=== PATIENT | female | born 1980 | race Caucasian/White ===

== ENCOUNTER 2025-05-09 11:41 | Outpatient (REF) | payer MEDICAID, SELFPAY ==
--- OUTSIDE RECORDS SUMMARY | 2025-05-09 11:30 | XMS_ITS | Encounter Summary ---
Author Organization [employer] Address [address] [place] [address] Care Team Providers Care Professional Development Director Name Role Phone Unavailable Primary Care Provider Unavailabl e Reason for Visit * Reason Comments Blood Pressure Check Encounter Details Date Type Department Care Team (Latest Contact Info) Description 05/09/2025 11:30 AM EST Clinical Support [facility] [address] [place] [address] Kenzie Blackburn RN [address] [place] [address] Hypertension, unspecified type Social History Tobacco Use Types Packs/Day Years Used Date Smoking Tobacco: Never Smokeless Tobacco: Never Tobacco Cessation:Counseling Given: Not Answered Alcohol Answer Date Recorded Q1: How often do you have a drink containing alc ohol? 1 04/25/2025 Average Number of Drinks Not on file 025 How often do you have six or more drinks on one occasion? 0 04/25/2025 Comments No Sex and Gender Information Value Date Recorded Sex Assigned at Female 04/25/2025 10:29 AM EST Legal Sex Female 10:11 AM EST Gender Identity Female 04/25/2025 10:29 AM EST Sexual Orientation Straight 04/25/2025 10 :29 AM EST documented as of this encounter Last Filed Vital Signs Vital Sign Reading Time Taken Comments Blood Pressure 144/92 05/09/2025 11:45 AM EST Pulse 99 05/09/2025 11:44 AM EST Temperature - - Respiratory Rate 16 05/09/2025 11:44 AM EST Oxygen Saturation 99% 05/09/2025 11:44 AM EST Room air Inhaled Oxygen Concentration - - Weight 96.7 kg (213 lb 3.2 oz) 05/09/2025 11:44 AM EST Height - - Body Mass Index 36.6 04/25/2025 11:02 AM EST documented in this encounter Progress Notes * Kenzie Blackburn RN - 05/09/2025 11:30 AM EST S: Pt here for nurse visit for BP Check. Pt reports that she does not have a car and she walks 3 times a week for 30 minutes at at time. Reports that she normally eats rice, meat, salad, fruit and vegetables. Pt denies smoking, denies drinking alcohol. Pt reports that she thinks that her home Bloodpressure readings have been good as she is not having any symptoms and feels well. Reports that shedoes not have a blood pressure monitor. Reports she is tolerating amlodipine well and has not experienced any medication reaction. Pt denies headache, chest pain, sob, dizziness and visual changes today. Pt declines influenza vaccine offered today. O: Pt currently rx amlodipine 2.5 mg po daily. Pt states is taking this medication daily and she took it this morning. A: BP today elevated at 146/90 left arm, sitting; 144/92 right arm, sitting P: Pt provided with home BP log. Parameters and ED precautions reviewed. Pt advised to take medications as rx. Pt encouraged to adhere to low sodium diet. Pt encouraged to increase amount and frequency of exercise. Recommended to complete outstanding lab orders. Advised note will be sent to provider for review and pt will be advised of any changes. * Larry Keen MD - 05/09/2025 11:30 AM EST No med changes. I will send a BP monitor for her. Please let her know documented in this encounter Miscellaneous Notes * Addendum Note - Larry Keen MD - 05/09/2025 11:30 AM ESTAddended by: LARRY KEEN on: 05/09/2025 01:40 PM Modules accepted: Orders documented in this encounter Plan of Treatment Upcoming Encounters Date Type Department Care Team (Late st Contact Info) Description 05/23/2025 11:00 AM EST Clinical Support [address] [address] 05/30/2025 2:00 PM EST Office Visit [address] [address] Padmaja Carney NP [address] [place] [address] documented as of this encounter Visit Diagnoses Diagnosis Hypertension, unspecified type documented in this encounter
[2025-05-09 13:08] LABS: MANUAL DIFF FLAG NO
[2025-05-09 13:18] LABS: Hematocrit 39.6 % (37.0-47.0); Hemoglobin 13.0 g/dl (12.0-16.0); Imm Gran Abs Auto 0.02 X10*3/uL (0.00-0.03); Imm Gran Pct Auto 0.3 % (0.0-0.4); Lymphocytes Absolute Auto 1.7 X10*3/uL (1.2-4.9); Mean Corpuscular HGB Conc 32.8 g/dl (31.0-35.0); Mean Corpuscular Hemoglobin 29.0 pg (27.0-33.0); Mean Corpuscular Volume 88.4 fL (80.0-98.0); NRBC Abs Auto 0.000 X10*3/uL (0.0-0.012); NRBC Pct Auto 0.0 /100WBC (0.0-0.2); Platelet Count 389 X10*3/uL (160-400); Red Blood Count 4.48 X10*6/uL (4.20-5.50); White Blood Count 7.6 X10*3/uL (4.8-10.8)
[2025-05-09 13:44] LABS: Anion Gap 11 (12-20); Blood Urea Nitrogen 9 mg/dL (9-16); Calcium 9.3 mg/dL (8.4-10.2); Carbon Dioxide 25 mmol/L (22-29); Chloride 106 mmol/L (96-108); Estimated Glomerular Filt Rate > 60; Potassium 3.7 mmol/L (3.3-5.1); Sodium 138 mmol/L (135-145)
--- OUTSIDE RECORDS SUMMARY | 2025-05-09 14:55 | XMS_ITS | Clinical Summary ---
Author Organization [employer] Address [address] [place] [address] Care Team Providers Care Dynamics Ax Solution Architect Name Role Phone Unavailable Primary Care Provider Unavailabl e Allergies Active Allergy Reactions Criticality Noted Date Comments Penicillins Rash Low 04/25/2025 Shrimp Flavor Agent (Non-Screening) Angioedema Low 04/25/2025 Medications amLODIPine (Norvasc) 2.5 MG tablet Take 1 tablet (2.5 mg) by mouth Once per day. 30 tablet 11 05/09/2025 12:20 PM EST 04/25/20 26 Active naproxen (Naprosyn) 500 MG tablet Take 1 tablet (500 mg) by mouth with breakfast and with evening meal for 10 days. 20 tablet 05/09/2025 12:20 PM EST 5 05/19/20 25 Active Blood Pressure kit For home use once a day 1 kit Active Encounters Date Type Department Care Team Description 05/09/2025 11:30 AM EST Clinical Support [facility] MEDICINE [address] [place] [phone] Kenzie Blackburn RN Hypertension, unspecified type 05/09/2025 Telephone [facility] MED[facility]INE [address] [place] [phone] Larry Saucedo MD 05/09/2025 Refill [facility]ALK-IN [address] [address] Larry Saucedo MD 05/09/2025 Travel 05/03/2025 Travel 04/25/2025 11:00 AM EST Office Visit [facility] [address] [place] [phone] Name, MD Larry Trochanteric bursitis of right hip (Primary Dx); Lateral pain of right hip; Hypertension, unspecified type 04/25/2025 Travel from Last 3 Months Family History Medical History Relation Name Comments Hypertension Mother Relation Name Status Comments Mother Social History Tobacco Use Types Packs/Day Years [...] Orientation Straight 04/25/2025 10 :29 AM EST Last Filed Vital Signs Vital Sign Reading Time Taken Comments Blood Pressure 144/92 05/09/2025 11:45 AM EST Pulse 99 05/09/2025 11:44 AM EST Temperature 36.4 C (97.5 F) 04/25/2025 11:02 AM EST Respiratory Rate 16 05/09/2025 11:44 AM EST Oxygen Saturation 99% 05/09/2025 11:44 AM EST Room air Inhaled Oxygen Concentration - - Weight 96.7 kg (213 lb 3.2 oz) 05/09/2025 11:44 AM EST Height 162.6 cm (5' 4 ) 04/25/2025 11:02 AM EST Body Mass Index 36.6 04/25/2025 11:02 AM EST Plan of Treatment Upcoming Encounters Date Type Department Care Team (Late st Contact Info) Description 05/23/2025 11:00 AM EST Clinical Support [facility] MEDICINE [address] [place] [phone] 05/30/2025 2:00 PM EST Office Visit [facility] MED[facility] [address] [place] [phone] Padmaja Carney NP [address] [place] [phone] Health Maintenance Due Date Last Done Comments Depression Screening 1982 HIV Screening 1982 Lipid Panel 1982 SDOH Screening 1982 Family Planning (PISQ) 1997 HPV Vaccines (1 - 3-dose series) 1997 Hepatitis C Screening 2000 DTaP/Tdap/Td Vaccines (1 - Tdap) 2001 Hepatitis B Vaccines (1 of 3 - 19+ 3-dose series) 2001 Pap Smear 2003 Cervical Cancer Screening 2012 HPV/Cotest 2012 Mammogram 2022 COVID-19 Vaccine (1 - 2024-2 6 season) 2025 Influenza Vaccine (#1) 2025 Alcohol/Substance Use Screening 04/25/2026 Disability Screening 05/03/2026 05/03/2025 Tobacco Screening 05/09/2026 05/09/2025 Zoster Vaccines (1 of 2) 2032 RSV Patients and Pa tients Aged 60 years or older (1 - 1-dose 75+ series) 2057 HIB Vaccines Aged Out No longer eligi ble based on patient's age to complete this topic Hepatitis A Vaccines Aged Out No long er eligible based on patient's age to complete this topic IPV Vaccines Aged Out No longer eligi ble based on patient's age to complete this topic Meningococcal B Vaccine Aged Out No l onger eligible based on patient's age to complete this topic Meningococcal Vaccine Aged Out No nicolasa batsheva eligible based on patient's age to complete this topic Pneumococcal Vaccine: Pediat rics (0 to 5 Years) and At-Risk Patients (6 to 49) Years Aged Out No longer eligi ble based on patient's age to complete this topic RSV under 20 months Aged Out No longe r eligible based on patient's age to complete this topic Rotavirus Vaccines Aged Out No longer eligible based on patient's age to complete this topic Procedures Procedure Name Priority Date/Time Associated Diagnosis Comments CBC WITH AUTO DIFFERENTIAL Routine 05/09/2025 11:49 AM EST Hypertension, unspecified type BASIC METABOLIC PANEL Routine 05/09/2025 11:49 AM EST Hypertension, unspecified type from Last 3 Months Results * CBC auto differential (05/09/2025 11:49 AM EST) White Blood Count 7.6 4.8 - 10.8 X10*3/uL [facility] Red Blood Count 4.48 4.20 - 5.50 X10*6/uL [facility] Hemoglobin 13.0 12.0 - 16.0 g/dl [facility] Hematocrit 39.6 37.0 - 47.0 % [facility] Mean Corpuscular Volume 88.4 80.0 - 98.0 fL [facility] Mean Corpuscular Hemoglobin 29.0 27.0 - 33.0 pg [facility] Mean Corpuscular HGB Conc 32.8 31.0 - 35.0 g/dl [facility] Red Cell Distribution Width 14.7 11.0 - 16.0 % [facility] Platelet Count 389 160 - 400 X10*3/uL [facility] Mean Platelet Volume 11.0 9.4 - 12.3 fL [facility] Neutrophils Percent Auto 65.0 45 - 73 % [facility] Imm Gran Pct Auto 0.3 0.0 - 0.4 % [facility] Lymphocytes Percent Auto 22.1 20 - 40 % [facility] Monocytes Percent Auto 9.6 2 - 11 % [facility] Eosinophils Percent Auto 2.1 0 - 4 % [facility] Basophils Percent Auto 0.9 0 - 2 % [facility] NRBC Pct Auto 0.0 0.0 - 0.2 /100WBC [facility] Neutrophils Absolute Auto 4.9 2.0 - 8.3 x10*3/uL [facility] Imm Gran Abs Auto 0.02 0.00 - 0.03 X10*3/uL [facility] Lymphocytes Absolute Auto 1.7 1.2 - 4.9 X10*3/uL [facility] Monocytes Absolute Auto 0.7 0.1 - 1.2 X10*3/uL [facility] Eosinophils Absolute Auto 0.2 0.0 - 0.4 X10*3/uL [facility] Basophils Absolute Auto 0.1 0.0 - 0.2 X10*3/uL [facility] NRBC Abs Auto 0.000 0.0 - 0.012 X10*3/uL [facility] Blood Venous blood specimen / Unknown 05/09/2025 11:49 AM EST 05/09/2025 1:04 PM EST us Larry Saucedo MD LAB BLOOD ORDERABLES Final Resul t Performing Organization Address [facility] Co de Phone Number [facility] [address] [place] [phone] * (ABNORMAL) Basic Metabolic Panel (05/09/2025 11:49 AM EST) Sodium 138 135 - 145 mmol/L [facility] Potassium 3.7 3.3 - 5.1 mmol/L [facility] Chloride 106 96 - 108 mmol/L [facility] Carbon Dioxide 25 22 - 29 mmol/L [facility] Anion Gap 11(L) 12 - 20 [facility] Urea Nitrogen (BUN) 9 9 - 16 mg/dL [facility] Creatinine, Serum 0.60 0.5 - 1.4 mg/dL [facility] Estimated Glomerular Filt Rate >60 [facility] Comment:Chronic Kidney Disea se: Estimated GFR < 60 mL/min/1.07a5Bjiwan Kidney Disease: Estimated GFR < 15 mL/min/1.73m2 Glucose 86 60 - 115 mg/dL [facility] Calcium 9.3 8.4 - 10.2 mg/dL [facility] Blood Venous blood specimen / Unknown 05/09/2025 11:49 AM EST 05/09/2025 1:08 PM EST us Larry Saucedo MD LAB BLOOD ORDERABLES Final Resul t Performing Organization Address [facility] Co de Phone Number [facility] [address] [place] [address] [phone] from Last [address] [phone] [facility] C[facility]
--- OUTSIDE RECORDS SUMMARY | 2025-05-09 14:55 | XMS_ITS | Encounter Summary ---
Author Organization [employer] Address [address] [place] [address] Care Team Providers Care Grease Rack Worker Name Role Phone Unavailable Primary Care Provider Unavailabl e Encounter Details Date Type Department Care Team (Late st Contact Info) Description 05/09/2025 Telephone [facility] MEDIC[facility] [address] [place] [address] Name, MD Larry [address] [place] [address] Social History Tobacco Use Types Packs/Day Years Used Date Smoking Tobacco: Never Smokeless Tobacco: Never Alcohol Answer Date Recorded Q1: How often [...] AM EST documented as of this encounter Miscellaneous Notes * Telephone Encounter - Kenzie Blackburn RN - 05/09/2025 2:02 PM EST T/C to pt via [employer]. Administrative Executive #[id number]. Advised of message from Dr. Saucedo re: prescription for blood pressure monitor being sent to [facility] pharmacy. Pt agrees to poultry picking machine tender prescription, check and recordhome BP daily and f/u with team nurse for blood pressure check 05/23/25. documented in this encounter Plan of Treatment Upcoming Encounters Date Type Department Care Team (Late st Contact Info) Description 05/23/2025 11:00 AM EST Clinical Support [address] [address] 05/30/2025 2:00 PM EST Office Visit [address] [address] Padmaja Carney NP [address] [place] [phone] documented as of this encounter Visit Diagnoses Not on filedocumented in this encounter
--- OUTSIDE RECORDS SUMMARY | 2025-05-09 14:55 | XMS_ITS | Encounter Summary ---
Author Organization [employer] Address [address] [place] [address] Care Team Providers Care Sterilisation Technician Name Role Phone Unavailable Primary Care Provider Unavailabl e Reason for Visit * Reason Comments Med Refill Encounter Details Date Type Department Care Team (Late Contact Info) Description 05/09/2025 Refill [facility] [address] [place] [phone] Name, MD Larry [address] [place] [phone] Social History Tobacco Use Types Packs/Day Years [...] AM EST documented as of this encounter Plan of Treatment Upcoming Encounters Date Type Department Care Team (Late Contact Info) Description 05/23/2025 11:00 AM EST Clinical Support [facility] [address] [place] [phone] 05/30/2025 2:00 PM EST Office Visit [facility] [address] [place] [phone] Padmaja Carney NP [address] [place] [address] documented as of this encounter Visit Diagnoses Not on filedocumented in this encounter
--- OUTSIDE RECORDS SUMMARY | 2025-05-09 14:55 | XMS_ITS | Encounter Summary ---
Author Organization [employer] Address [address] [facility] [address] [place] [address] Care Team Providers Care Hydraulic And Plumbing Installer Name Role Phone Unavailable Primary Care Provider Unavailabl e Encounter Details Date Type Department Care Team (Latest Contact Info) Description 05/09/2025 Travel Social History Tobacco Use Types Packs/Day Years [...] Description 05/23/2025 11:00 AM EST Clinical Support [facility] MEDICINE [address] [place] [phone] 05/30/2025 2:00 PM EST Office Visit [facility] [address] [place] [phone] Padmaja Carney NP [address] [place] [address] documented as of this encounter Visit Diagnoses Not on filedocumented in this encounter
== END 2025-05-09 11:42 | disposition home or self-care (01) ==
LOC: HO.HHCL 11:41
PROVIDERS: Internal Medicine Geriatric Medicine; PCP Internal Medicine; Visit Provider Internal Medicine
DX: I10 Essential (primary) hypertension (principal)
CPT/HCPCS: 36415; 80048; 85025

== ENCOUNTER 2025-05-30 16:39 | Outpatient (REF) | payer MEDICAID, SELFPAY ==
--- OUTSIDE RECORDS SUMMARY | 2025-05-30 14:00 | XMS_ITS | Encounter Summary ---
Author Organization [employer] [facility] Address [address] [place] [address] 7 [place] [address] Care Team Providers Care Sewage Disposal Worker Name Role Phone Padmaja Carney NP Primary Care Provider [phone] Reason for Referral * Consultation (Routine) - Authorized Specialty Diagnoses / Procedures Referred By Obdulia t Referred To Contact Dental Software Development Coordinator / Dentistry Diagnoses Healthcare maintenance Padmaja Carney NP [address] [place] [address] Phone: tel: fax: Referral ID Status Reason Start Date Expiration Date Visits Requested Visits Authorized [id number] Authorized Consult and Treat 05/30/2025 05/30/2026 1 1 * Imaging (Routine) - Authorized Specialty Diagnoses / Procedures Referred By Obdulia t Referred To Contact Radiology Diagnoses Healthcare maintenance Procedures BI Mammogram Screening Tomosynthesis Bilateral Padmaja Carney NP [address] [place] [address] Phone: tel: fax: [address] [phone] Phone: tel: fax: Referral ID Status Reason Start Date Expiration Date V isits Requested Visits Authorized [id number] Authorized 05/30/2025 05/30/2026 1 1 Encounter Details Date Type Department Care Team (Late st Contact Info) Description 05/30/2025 2:00 PM EST Office Visit [facility] [address] [place] [address] Padmaja Carney NP [address] [place] [address] Healthcare maintenance (Primary Dx); Routine screening for STI (sexually transmitted infection); Lipid screening; Encounter for immunization; Primary hypertension; Anxiety Social History Tobacco Use Types Packs/Day Years Used Date Smoking Tobacco: Former Cigarettes Passive Smoke Exposure: Past Smokeless Tobacco: Former Tobacco Cessation:Counseling Given: Not Answered Alcohol Answer Date Recorded Q1: How often do you have a drink containing alc ohol? 1 04/25/2025 Average Number of Drinks Not on file 025 How often do you have six or more drinks on one occasion? 0 04/25/2025 Depression Answer Date Recorded Patient Health Questionnaire-9 Score 4 05/30/2025 Patient Health Questionnaire-9 Score 4 05/30/2025 Last PHQ-9: Questionnaire Data Not on file 1 07/31/2024 Housing Stability Answer Date Recorded What is your housing situation today? I do not have housing (Staying with others, in a hotel, in a correction, living outside on the street, on a beach, in a car, or in a park 05/30/[address] you li ve. Do you have problems with any of the following? I am not sure 05/30/2025 Food Insecurity Answer Date Recorded Within the past 12 months, y ou worried that your food would run out before you got money to buy more: Sometimes True 2024 Within the past 12 months,th e food you bought just didn't last and you didn't have enough money to get more: Sometimes True 05/30/2025 Transportation Answer Date Recorded In the past 12 months, has l ack of transportation kept you from medical appts, meetings, work or from getting things needed for daily living? I am not sure 05/30/2025 Utilities Answer Date Recorded In the past 12 months, has t he electric, gas, oil or water company threatened to shut off services in your home? No 05/30/2025 Depression Answer Date Recorded Patient Health Questionnaire-2 Score 2 05/30/2025 Internet Access Answer Date Recorded Internet Access Q1 Yes 05/30/2025 Internet Access Q2 Not on file 05/30/2025 Comments No Sex and Gender Information Value Date Recorded Sex Assigned at Female 04/25/2025 10:29 AM EST Legal Sex Female 10:11 AM EST Gender Identity Female 04/25/2025 10:29 AM EST Sexual Orientation Straight 04/25/2025 10 :29 AM EST documented as of this encounter Last Filed Vital Signs Vital Sign Reading Time Taken Comments Blood Pressure 146/82 05/30/2025 2:10 PM EST Pulse 74 05/30/2025 2:10 PM EST Temperature 36.7 C (98.1 F) 05/30/2025 2:10 PM EST Respiratory Rate 18 05/30/2025 2:10 PM EST Oxygen Saturation 98% 05/30/2025 2:10 PM EST Inhaled Oxygen Concentration - - Weight 95.9 kg (211 lb 6 oz) 05/30/2025 2:10 PM EST Height 161.1 cm (5' 3.44 ) 05/30/2025 2:10 PM ES T Body Mass Index 36.93 05/30/2025 2:10 PM EST documented in this encounter Functional Status * Over the past 2 weeks, how often have you been bothered by any of the following problems? Question Answer Date of Assessment Author Patient Health Questionnaire -2 Score 2 05/30/2025 3:01 PM EST Chelsey Hollingsworth MA * Little interest or pleasure in doing things Answer Date of Assessment Author More than half the days 05/30/2025 3:01 PM EST R Chelsey Vail MA * Feeling down, depressed, or hopeless Answer Date of Assessment Author Not at all 05/30/2025 3:01 PM EST Chelsey Gonzalez MA * Trouble falling or staying asleep, or sleeping too much Answer Date of Assessment Author Not at all 05/30/2025 3:01 PM EST Chelsey Gonzalez MA * Feeling tired or having little energy Answer Date of Assessment Author More than half the days 05/30/2025 3:01 PM EST R eyes Chelsey Gómez MA * Poor appetite or overeating Answer Date of Assessment Author Not at all 05/30/2025 3:01 PM Chelsey Melissa MA * Feeling bad about yourself - or that you are a failure or have let yourself or your family down Answer Date of Assessment Author Not at all 05/30/2025 3:01 PM Chelsey Melissa MA * Trouble concentrating on things, such as reading the newspaper or watching television Answer Date of Assessment Author Not at all 05/30/2025 3:01 PM Chelsey Melissa MA * Moving or speaking so slowly that other people could have noticed? Or the opposite - being so fidgety or restless that you have been moving around a lot more than usual. Answer Date of Assessment Author Not at all 05/30/2025 3:01 PM Chelsey Melissa MA * Thoughts that you would be better off or hurting yourself in some way Answer Date of Assessment Author Not at all 05/30/2025 3:01 PM Chelsey Melissa MA * Patient Health Questionnaire-9 Score Answer Date of Assessment Author 4 05/30/2025 3:01 PM Chelsey Melissa MA * Over the last 2 weeks, how often have you been bothered by any of the following problems? Question Answer Date of Assessment Author Feeling nervous, anxious, or on edge 1 05/30/2025 3:01 PM Chelsey Knight MA Not being able to stop or control worrying 0 05/30/2025 3:01 PM Chelsey Knight MA Worrying too much about different things 1 05/30/2025 3:01 PM Chelsey Knight MA Trouble relaxing 1 05/30/2025 3:01 PM Chelsey Orellana MA Being so restless that it is hard to sit still 0 05/30/2025 3:01 PM Chelsey Knight MA Becoming easily annoyed or irritable 1 05/30/2025 3:01 PM Chelsey Knight MA Feeling afraid as if somethi ng awful might happen 0 05/30/2025 3:01 PM Chelsey Knight MA JANA-7 Total Score 4 05/30/2025 3:01 PM Chelsey Knight MA * How difficult have these problems made it for you to do your work, take care of things at home, or get along with other people? Answer Date of Assessment Author Not difficult at all 05/30/2025 3:01 PM Chelsey Auguste MA documented as of this encounter Progress Notes * Padmaja Carney NP - 05/30/2025 2:00 PM EST Subjective: Kandis Wheatley is a 45 y.o. female who presents to the office for a physical exam. Interim history: Note from Dr. Saucedo 04/25/25: Patient symptoms [R sided hip pain] are likely secondary to right-sided trochanteric bursitis. I recommended activity modification, avoid sitting with her legs crossed, avoid laying down on the right side, course of naproxen and call if symptoms persist in a couple of w eeks. Started amlodipine 2.5mg Amlodipine increased to 5mg at RN visit on 05/23/25 Current concerns: Hypertension BP Log from home reveals BP consistently in the 140s systolically. Elevated in office today (146/82) - Reports feeling well, no side effects from current antihypertensive medication except for possible constipation, which is not bothersome. - Concerned about high blood pressure due to associated risks. - Actively making lifestyle changes, including increased walking and healthier diet with more fruits and vegetables. 2. Mood Concerns / Anxiety - Previously experienced low mood, feelings of worry and nervousness related to lack of employment,financial concerns, and housing instability. - Noted improvement in mood since starting new employment. - Reports feeling tired, attributes fatigue to working night shifts and possible perimenopausal symptoms. - Denies current depression. Hip Pain - History of hip pain, previously experienced significant discomfort and limited mobility. - Reports significant improvement; currently no hip pain. Problem List[1] Surgical History[2] sterilization 2017 Family History[3] Social History Living situation: sister & 2 children Employment/Education: works in retail Diet/exercise: walking regularly, trying to increase fruit & vegetables, decreasing salt Substance use: none Sexual activity: not consistently Contraception: 2017 sterilization (does not know which operation) Mental health: Patient Health Questionnaire-9 Score: 4 (05/30/2025 3:01 PM) Patient Health Questionnaire-2 Score: 2 (05/30/2025 3:01 PM) Thoughts that you would be better off or hurting yourself in some way: Not at all (05/30/2025 3:01 PM) JANA-7 Total Score: 4 (05/30/2025 3:01 PM) Patient's last menstrual period was 05/28/2025 (exact date). Allergies[4] Review of Systems Constitutional: Negative for chills, diaphoresis, fatigue and fever. HENT: Negative for congestion, ear pain, hearing loss and sore throat. Eyes: Negative for pain and visual disturbance. Respiratory: Negative for cough, chest tightness and shortness of breath. Cardiovascular: Negative for chest pain, palpitations and leg swelling. Gastrointestinal: Positive for constipation. Negative for abdominal pain, blood in stool, diarrhea,nausea and vomiting. Genitourinary: Negative for difficulty urinating and dysuria. Musculoskeletal: Negative for arthralgias, back pain, joint swelling and myalgias. Skin: Negative for rash. Neurological: Negative for dizziness, syncope, light-headedness and headaches. Psychiatric/Behavioral: Negative for dysphoric mood. The patient is not nervous/anxious. Vitals: 05/30/25 1410 BP: (!) 146/82 BP Location: Left arm Patient Position: Sitting BP Cuff Size: Large adult Pulse: 74 Resp: 18 Temp: 98.1 ??F (36.7 ??C) TempSrc: Oral SpO2: 98% Weight: 211 lb 6 oz (95.9 kg) Height: 5' 3.44 (1.611 m) Physical Exam Constitutional: General: She is not in acute distress. Appearance: She is not ill-appearing, toxic-appearing or diaphoretic. HENT: Right Ear: Tympanic membrane, ear canal and external ear normal. Left Ear: Tympanic membrane, ear canal and external ear normal. Nose: Nose normal. Mouth/Throat: Mouth: Mucous membranes are moist. Pharynx: Oropharynx is clear. Eyes: General: Right eye: No discharge. Left eye: No discharge. Conjunctiva/sclera: Conjunctivae normal. Pupils: Pupils are equal, round, and reactive to light. Cardiovascular: Rate and Rhythm: Normal rate and regular rhythm. Pulses: Normal pulses. Heart sounds: Normal heart sounds. No murmur heard. Pulmonary: Effort: Pulmonary effort is normal. No respiratory distress. Breath sounds: Normal breath sounds. No stridor. No wheezing, rhonchi or rales. Abdominal: General: Abdomen is flat. Bowel sounds are normal. There is no distension. Palpations: There is no mass. Tenderness: There is no abdominal tenderness. There is no right CVA tenderness or left CVA tenderness. Musculoskeletal: General: No swelling, deformity or signs of injury. Cervical back: No tenderness. Right lower leg: No edema. Left lower leg: No edema. Lymphadenopathy: Cervical: No cervical adenopathy. Skin: General: Skin is warm and dry. Neurological: General: No focal deficit present. Mental Status: She is alert. Psychiatric: Mood and Affect: Mood normal. Behavior: Behavior normal. Assessment & Plan Healthcare maintenance - Healthcare maintenance addressed including preventive care. - Ordered mammogram for breast cancer screening. Discussed colon cancer screening to begin at age 45. Placed referrals for vision and dental care. Will check baseline labs. Orders: Comprehensive Metabolic Panel; Future CBC auto differential; Future BI Mammogram Screening Tomosynthesis Bilateral; Future Referral to [facility] Dental Adult; Future Routine screening for STI (sexually transmitted infection) Orders: Chlamydia/N. Gonorrhoeae, PCR, Urine Hepatitis B Core Antibody, Total; Future Hepatitis B Surface Antibody, Qualitative; Future Hepatitis B surface antigen, EIA; Future Hepatitis C Antibody with Reflex to HCV, RNA, Quantitative, Real-Time PCR; Future HIV-1/2 Antigen and Antibodies, Fourth Generation, with Reflexes; Future Syphilis Screen; Future Lipid screening Orders: Lipid Panel, Standard; Future Encounter for immunization Orders: TDAP VACCINE 7 yrs + Primary hypertension - Primary hypertension not yet at goal on current regimen. - Will start hydrochlorothiazide 12.5mg. Continue with amlodipine 5mg. Recheck BMP in 2 weeks. -Recommended lifestyle modifications including increased physical activity and dietary improvements. Will notify if abnormal lab results require further intervention. - Risks and side effects: Discussed potential side effects of antihypertensive medications and advised to report any adverse effects. -F/U in 2 wks for RN BP check Orders: hydroCHLOROthiazide 12.5 MG tablet; Take 1 tablet (12.5 mg) by mouth Once per day. Basic Metabolic Panel; Future Anxiety - Mild depressive and anxiety symptoms, currently improving with return to work and improved mood. No pharmacologic intervention indicated at this time. - Offered referral to behavioral health for therapy, patient agreed. not available during visit,will call the pt to schedule an appointment Routine Screening and Health Maintenance Optometry: referral placed today Dentist: referral placed today ASCVD risk: 45 y.o. femalehypertension Lab Review: orders written for new lab studies as appropriate; see orders Vaccines: Tdap -administered today Covid -declined Flu -declined Routine Cancer Screening Breast CA: mammo sent today Cervical CA: completed in January at [facility] Current Medications[5] Immunization History Administered Date(s) Administered Tdap 05/30/2025 Follow up in about 2 weeks (around 06/13/2025) for RN visit for BP check . [facility] RECRUITING ADMINISTRATOR Attestation RECRUITING ADMINISTRATOR Resident Attestation: Patient was seen and evaluated by Padmaja ALSTON , in collaboration with Edouard Bagley MD who has reviewed my assessment and plan. I, Edouard Bagley MD , have reviewed the resident's note and agree with the assessment & plan of care as documented above. This note was drafted using Ambient (AI) technology. The patient/patient's guardian has been informed and has consented to the use of this technology: Yes Visit Conducted in: Hungarian Translation by: Provided by [employer] Phone Service ID # [id number] [1] Patient Active Problem List Diagnosis Primary hypertension [2] No past surgical history on file. [3] Family History Problem Relation Name Age of Onset Hypertension Mother [4] Allergies Allergen Reactions Penicillins Rash Shrimp Flavor Agent (Non-Screening) Angioedema [5] Current Outpatient Medications Medication Sig Dispense Refill amLODIPine (Norvasc) 5 MG tablet Take 1 tablet (5 mg) by mouth Once per day. 30 tablet 11 Blood Pressure kit For home use once a day 1 kit 0 hydroCHLOROthiazide 12.5 MG tablet Take 1 tablet (12.5 mg) by mouth Once per day. 30 tablet 11 No current facility-administered medications for this visit. documented in this encounter Miscellaneous Notes * Assessment & Plan Note - Padmaja Carney NP - 05/30/2025 2:00 PM ESTAssociated Problem(s): Primary hypertension - Primary hypertension not yet at goal on current regimen. - Will start hydrochlorothiazide 12.5mg. Continue with amlodipine 5mg. Recheck BMP in 2 weeks. -Recommended lifestyle modifications including increased physical activity and dietary improvements. Will notify if abnormal lab results require further intervention. - Risks and side effects: Discussed potential side effects of antihypertensive medications and advised to report any adverse effects. -F/U in 2 wks for RN BP check Orders: hydroCHLOROthiazide 12.5 MG tablet; Take 1 tablet (12.5 mg) by mouth Once per day. Basic Metabolic Panel; Future * Assessment & Plan Note - Padmaja Carney NP - 05/30/2025 2:00 PM ESTAssociated Problem(s): Anxiety - Mild depressive and anxiety symptoms, currently improving with return to work and improved mood. No pharmacologic intervention indicated at this time. - Offered referral to behavioral health for therapy, patient agreed. BH not available during visit,will call the pt to schedule an appointment documented in this encounter Plan of Treatment Upcoming Encounters Date Type Department Care Team (Late st Contact Info) Description 06/13/2025 11:00 AM EST Clinical Support [facility] [address] [place] [address] Scheduled Orders Name Type Priority Associated Diagnoses Orde r Schedule Chlamydia/N. Gonorrhoeae, PCR, Urine Lab Routine Routine screening for STI (sexually transmitted infection) Ordered: 05/30/2025 Hepatitis B Core Antibody, Total Lab Routine Routine screening for STI (sexually transmitted infection) Expected: 05/30/2025 (Approximate), Expires: 05/30/2026 Hepatitis B Surface Antibody, Qualitative Lab Routine Routine screening for STI (sexually transmitted infection) Expected: 05/30/2025 (Approximate), Expires: 05/30/2026 Hepatitis B surface antigen, EIA Lab Routine Routine screening for STI (sexually transmitted infection) Expected: 05/30/2025 (Approximate), Expires: 05/30/2026 Hepatitis C Antibody with Reflex to HCV, RNA, Quantitative, Real-Time PCR Lab Routine Routine screening for STI (sexually transmitted infection) Expected: 05/30/2025 (Approximate), Expires: 05/30/2026 HIV-1/2 Antigen and Antibodies, Fourth Generation, with Reflexes Lab Routine Routine screening for STI (sexually transmitted infection) Expected: 05/30/2025 (Approximate), Expires: 05/30/2026 Syphilis Screen Lab Routine Routine screening for STI (sexually transmitted infection) Expected: 05/30/2025 (Approximate), Expires: 05/30/2026 Comprehensive Metabolic Panel Lab Routine Healthcare maintenance Expected: 05/30/2025 (Approximate), Expires: 05/30/2026 CBC auto differential Lab Routine Healthcare maintenance Expected: 05/30/2025 (Approximate), Expires: 05/30/2026 Lipid Panel, Standard Lab Routine Lipid screening Expected: 05/30/2025 (Approximate), Expires: 05/30/2026 BI Mammogram Screening Tomosynthesis Bilateral Imaging Routine Healthcare maintenance Expected: 05/30/2025, Expires: 07/31/2026 Basic Metabolic Panel Lab Routine Primary hypertension Expected: 06/13/2025 (Approximate), Expires: 05/30/2026 Scheduled Referrals Name Type Priority Associated Diagnoses Orde r Schedule Referral to [facility] Dental Adult Outpatient Referral Routine Healthcare maintenance Expected: 05/30/2025 (Approximate), Expires: 05/30/2026 documented as of this encounter Visit Diagnoses Diagnosis Healthcare maintenance- Primary Routine screening for STI (sexually transmitted infection) Screening examination for venereal disease Lipid screening Screening for lipoid disorders Encounter for immunization Primary hypertension Unspecified essential hypertension Anxiety Anxiety state, unspecified documented in this encounter Additional Health Concerns Assessment Noted Time PHQ-9 Depression Total Score: 4 05/30/20 25 3:01 PM EST documented as of this encounter Care Teams Sewage Disposal Worker Relationship Specialty Start Date End Date Padmaja Carney NP [address] [place] [phone] PCP - General Nurse Practitioner 05/30/25 documented as of this encounter
--- OUTSIDE RECORDS SUMMARY | 2025-05-30 21:04 | XMS_ITS | Encounter Summary ---
Author Organization [employer] Address [address] [place] [address] Care Team Providers Care Stone Processing Machine Operator Name Role Phone Padmaja Carney NP Primary Care Provider [phone] Reason for Visit * Reason Comments Med Refill Encounter Details Date Type Department Care Team (Late Contact Info) Description 05/09/2025 Refill [facility] [address] [place] [phone] Name, MD Larry [address] [place] [phone] Social History Tobacco Use Types Packs/Day Years [...] Description 06/13/2025 11:00 AM EST Clinical Support [facility] [address] [place] [phone] documented as of this encounter Visit Diagnoses Not on filedocumented in this encounter Care Teams Stone Processing Machine Operator Relationship Specialty Start Date End Date Padmaja Carney NP [address] [place] [phone] PCP - General Nurse Practitioner 05/30/25 documented as of this encounter
--- OUTSIDE RECORDS SUMMARY | 2025-05-30 21:04 | XMS_ITS | Encounter Summary ---
Author Organization [employer] Address [address] [place] [address] Care Team Providers Care Laundry Housekeeping Aide Name Role Phone Unavailable Primary Care Provider Unavailabl e Reason for Visit * Reason Onset Date Comments Chart Prep 05/29/2025 Encounter Details Date Type Department Care Team ([facility] st Contact Info) Description 05/29/2025 Telephone [facility] [address] [place] [address] Padmaja Carney, ANA [address] [place] [address] Chart Prep Social History Tobacco Use Types Packs/Day Years [...] with others, in a hotel, in a fpc, living outside on the street, on a [...] encounter Miscellaneous Notes * Telephone Encounter - Eduar Rosa MA - 05/29/2025 5:08 PM EST Chart Prep Labs: done Images: not applicable Referrals: not applicable Vaccines due: Covid, Flu, Hep B, HPV, and DTAP Screenings: mammogram and pap smear Overdue care gaps: SDOH, PHQ-9, JANA-7, Oral health screening, and Tobacco documented in this encounter Plan of Treatment Upcoming Encounters Date Type Department Care Team (Late st Contact Info) Description 06/13/2025 11:00 AM EST Clinical Support [facility] [address] [place] [phone] documented as of this encounter Visit Diagnoses Not on filedocumented in this encounter
--- OUTSIDE RECORDS SUMMARY | 2025-05-30 21:04 | XMS_ITS | Clinical Summary ---
Author Organization [employer] Address [address] [facility] [address] [place] [address] Care Team Providers Care Application Operations Engineer Name Role Phone Padmaja Carney NP Primary Care Provider [phone] Allergies Active Allergy Reactions Criticality Noted Date Comments Penicillins Rash Low 04/25/2025 Shrimp Flavor Agent (Non-Screening) Angioedema Low 04/25/2025 Medications Blood Pressure kit For home use once a day 1 kit 5 Active amLODIPine (Norvasc) 5 MG tablet Take 1 tablet (5 mg) by mouth Once per day. 30 tablet 11 05/24/2025 11:08 AM EST 5 026 Active hydroCHLOROthiaz delmar 12.5 MG tabletIndication s:Primary hypertension Take 1 tablet (12.5 mg) by mouth Once per day. 30 tablet 11 05/30/2025 3:51 PM EST 5 026 Active amLODIPine (Norvasc) 2.5 MG tablet Take 1 tablet (2.5 mg) by mouth Once per day. 30 tablet 11 05/09/2025 12:20 PM EST 5 025 Discontinu ed(Dose adjustment ) naproxen (Naprosyn) 500 MG tablet Take 1 tablet (500 mg) by mouth with breakfast and with evening meal for 10 days. 20 tablet 05/09/2025 12:20 PM EST 5 025 Active Problems Problem Noted Date Diagnosed Date Primary hypertension 05/30/2025 Assessment & Plan (05/30/2025 3:28 PM EST): - Primary hypertension not yet at goal [...] per day. Basic Metabolic Panel; Future Anxiety 05/30/2025 Assessment & Plan (05/30/2025 3:28 PM EST): - Mild depressive and anxiety symptoms, currently improving with return to work and improved mood. No pharmacologic intervention indicated at this time. - Offered referral to behavioral health for therapy, patient agreed. not available during visit, will call the pt to schedule an appointment Encounters Date Type Department Care Team Description 05/30/2025 2:00 PM EST Office Visit [facility] [place] [address] Padmaja Carney NP Healthcare maintenance (Primary Dx); Routine screening for STI (sexually transmitted infection); Lipid screening; Encounter for immunization; Primary hypertension; Anxiety 05/30/2025 Travel 05/29/2025 Telephone [facility] [address] Padmaja Carney NP Chart Prep 05/24/2025 Telephone [facility] [place] [address] Yenny Trujillo RN 05/23/2025 11:00 AM EST Clinical Support [facility] [address] Yenny Trujillo RN Hypertension, unspecified type 05/23/2025 Travel 05/16/2025 Travel 05/09/2025 11:30 AM EST Clinical Support [facility] [address] Kenzie Blackburn RN Hypertension, unspecified type 05/09/2025 Telephone [facility] [address] [place] [address] NameLarry MD 05/09/2025 Refill [facility] [address] [place] [address] NameLarry MD 05/09/2025 Travel 05/03/2025 Travel 04/25/2025 11:00 AM EST Office Visit [facility] [address] [facility] [place] [address] Name, MD Larry Trochanteric bursitis of right hip (Primary Dx); Lateral pain of right hip; Hypertension, unspecified type 04/25/2025 Travel from Last 3 Months Immunizations Immunization Administration Dates Next Due Tdap 05/30/2025 Family History Medical History Relation Name Comments [...] with others, in a hotel, in a intermediate, living outside on the street, on a [...] Mass Index 36.93 05/30/2025 2:10 PM EST Plan of Treatment Upcoming Encounters Date Type Department Care Team ([facility] st Contact Info) Description 06/13/2025 11:00 AM EST Clinical Support [facility] MEDICINE [address] [place] [phone] Health Maintenance Due Date Last Done Comments HIV Screening 1982 Lipid Panel 1982 Family Planning (PISQ) 1997 HPV Vaccines (1 - 3-dose series) 1997 Hepatitis C Screening 2000 Hepatitis B Vaccines (1 of 3 - 19+ 3-dose series) 2001 Pap Smear 2003 Cervical Cancer Screening 2012 HPV/Cotest 2012 Mammogram 2022 COVID-19 Vaccine ( - 2024-2 6 season) 2025 Influenza Vaccine (#1) 2025 Alcohol/Substance Use Screening 05/30/2026 05/30/2025 Depression Screening 05/30/2026 05/30/2025, 05/30/2025 Disability Screening 05/30/2026 05/30/2025 SDOH Screening 05/30/2026 05/30/2025 Tobacco Screening 05/30/2026 05/30/2025 Zoster Vaccines (1 of 2) 2032 DTaP/Tdap/Td Vaccines (2 - T d or Tdap) 05/30/2035 05/30/2025 RSV Patients and Patients Aged 60 years or older (1 - [...] age to complete this topic Pneumococcal Vaccine: Pediatrics (0 to 5 Years) and At-Risk Patients (6 to 49) Years Aged Out No longer eligible b ased on patient's age to complete this topic [...] Blood Count 7.6 4.8 - 10.8 X10*3/uL [facility] Red Blood Count 4.48 4.20 - 5.50 X10*6/uL [facility] Hemoglobin 13.0 12.0 - 16.0 g/dl [facility] Hematocrit 39.6 37.0 - 47.0 % [facility] Mean Corpuscular Volume 88.4 80.0 - 98.0 fL [facility] Mean Corpuscular Hemoglobin 29.0 27.0 - 33.0 pg [facility] Mean Corpuscular HGB Conc 32.8 31.0 - 35.0 g/dl [facility] Red Cell Distribution Width 14.7 11.0 - 16.0 % [facility] Platelet Count 389 160 - 400 X10*3/uL [facility] Mean Platelet Volume 11.0 9.4 - 12.3 fL [facility] Neutrophils Percent Auto 65.0 45 - 73 % [facility] Imm Gran Pct Auto 0.3 0.0 - 0.4 % [facility] Lymphocytes Percent Auto 22.1 20 - 40 % [facility] Monocytes Percent Auto 9.6 2 - 11 % [facility] Eosinophils Percent Auto 2.1 0 - 4 % [facility] Basophils Percent Auto 0.9 0 - 2 % [facility] NRBC Pct Auto 0.0 0.0 - 0.2 /100WBC [facility] Neutrophils Absolute Auto 4.9 2.0 - 8.3 x10*3/uL [facility] Imm Gran Abs Auto 0.02 0.00 - 0.03 X10*3/uL [facility] Lymphocytes Absolute Auto 1.7 1.2 - 4.9 X10*3/uL [facility] Monocytes Absolute Auto 0.7 0.1 - 1.2 X10*3/uL [facility] Eosinophils Absolute Auto 0.2 0.0 - 0.4 X10*3/uL [facility] Basophils Absolute Auto 0.1 0.0 - 0.2 X10*3/uL [facility] NRBC Abs Auto 0.000 0.0 - 0.012 X10*3/uL [facility] Blood Venous blood specimen / Unknown 05/09/2025 11:49 AM EST 05/09/2025 1:04 PM EST us Larry Name LAB BLOOD ORDERABLES Final Resul t Performing Organization Address [facility] Co de Phone Number [facility] [address] [place] [address] [phone] * (ABNORMAL) Basic Metabolic Panel (05/09/2025 11:49 AM EST) Sodium 138 135 - 145 mmol/L [facility] Potassium 3.7 3.3 - 5.1 mmol/L [facility] Chloride 106 96 - 108 mmol/L [facility] Carbon Dioxide 25 22 - 29 mmol/L [facility] Anion Gap 11(L) 12 - 20 [facility] Urea Nitrogen (BUN) 9 9 - 16 mg/dL [facility] Creatinine, Serum 0.60 0.5 - 1.4 mg/dL [facility] Estimated Glomerular Filt Rate >60 [facility] Comment:Chronic Kidney Disea se: Estimated GFR < 60 mL/min/1.24k2Sltuox Kidney Disease: Estimated GFR < 15 mL/min/1.73m2 Glucose 86 60 - 115 mg/dL [facility] Calcium 9.3 8.4 - 10.2 mg/dL [facility] Blood Venous blood specimen / Unknown 05/09/2025 11:49 AM EST 05/09/2025 1:08 PM EST Larry Saucedo MD LAB BLOOD ORDERABLES Final Resul t Performing Organization Address City/[facility]/ZIP Co de Phone Number [facility] [address] [place] [phone] from Last 3 Months Insurance [facility] [place] [address] [facility] C[facility] Care Teams Application Operations Engineer Relationship Specialty Start Date End Date Padmaja Carney NP [address] [place] [address] [phone] PCP - General Nurse Practitioner 05/30/25
--- OUTSIDE RECORDS SUMMARY | 2025-05-30 21:04 | XMS_ITS | Encounter Summary ---
Author Organization [employer] Address [address] [facility] [address] [facility] [address] [place] [address] Care Team Providers Care Bank President Name Role Phone Padmaja Carney NP Primary Care Provider [phone] Encounter Details Date Type Department Care Team (Latest Contact Info) Description 05/30/2025 Travel Social History Tobacco Use Types Packs/Day Years Used Date Smoking Tobacco: Former Cigarettes Passive Smoke Exposure: Past Smokeless Tobacco: Former Alcohol Answer Date Recorded Q1: How often [...] with others, in a hotel, in a penitentiary, living outside on the street, on a [...] AM EST documented as of this encounter Functional Status * Over the past 2 weeks, how often have you been bothered by any of the following problems? Question Answer Date of Assessment Author Patient Health Questionnaire -2 Score 2 05/30/2025 3:01 PM Chelsey Knight MA * Little interest or pleasure in doing things Answer Date of Assessment Author More than half the days 05/30/2025 3:01 PM EST R Chelsey Vail MA * Feeling down, depressed, or hopeless Answer Date of Assessment Author Not at all 05/30/2025 3:01 PM Chelsey Melissa MA * Trouble falling or staying asleep, or sleeping too much Answer Date of Assessment Author Not at all 05/30/2025 3:01 PM Chelsey Melissa MA * Feeling tired or having little [...] sit still 0 05/30/2025 3:01 PM Chelsey Knigth MA Becoming easily annoyed or irritable 1 [...] Not difficult at all 05/30/2025 3:01 PM EST Chelsey Vázquez MA documented as of this encounter Plan of Treatment Upcoming Encounters Date Type Department Care Team (Late st Contact Info) Description 06/13/2025 11:00 AM EST Clinical Support [facility] MEDICINE [address] [place] [address] documented as of this encounter Visit Diagnoses Not on filedocumented in this encounter Additional Health Concerns Assessment Noted Time PHQ-9 Depression Total Score: 4 05/30/20 3:01 PM EST documented as of this encounter Care Teams Bank President Relationship Specialty Start Date End Date Padmaja Carney NP [address] [place] [address] PCP - General Nurse Practitioner 05/30/25 documented as of this encounter
[2025-05-31 01:58] LABS: CT PCR Urine NOT DETECTED (Not Detect.); NG PCR Urine NOT DETECTED (Not Detect.)
== END 2025-05-30 16:40 ==
LOC: HO.HHCLNP 16:39
DX: Z20.2 Contact with and (suspected) exposure to infections with a predominantly sexual mode of transmission (principal)
CPT/HCPCS: 87491; 87591

== ENCOUNTER 2025-06-13 08:34 | Outpatient (REF) | payer MEDICAID, SELFPAY ==
--- OUTSIDE RECORDS SUMMARY | 2025-06-13 08:39 | XMS_ITS | Clinical Summary ---
Author Organization [employer] Address [address] [facility] [address] [place] [address] Care Team Providers Care Chiropractic Physician Name Role Phone Padmaja Carney NP Primary Care Provider [phone] Allergies Active Allergy Reactions Criticality Noted Date [...] Encounters Date Type Department Care Team Description 06/06/2025 Travel 05/30/2025 2:00 PM EST Office Visit [facility] [place] [address] Padmaja Carney NP Healthcare maintenance (Primary Dx); Routine screening for STI (sexually transmitted infection); Lipid screening; Encounter for immunization; Primary hypertension; Anxiety 05/30/2025 Travel 05/29/2025 Telephone [facility] [place] [address] Padmaja Carney NP Chart Prep 05/24/2025 Telephone [facility] [place] [address] Yenny Trujillo RN 05/23/2025 11:00 AM EST Clinical Support [facility] [place] [address] Yenny Trujillo RN Hypertension, unspecified type 05/23/2025 Travel 05/16/2025 Travel 05/09/2025 11:30 AM EST Clinical Support [facility] [place] [address] Kenzie Blackburn RN Hypertension, unspecified type 05/09/[address] [place] [address] NameLarry MD 05/09/2025 Refill [facility] [address] [place] [address] NameLarry MD 05/09/2025 Travel 05/03/2025 Travel 04/25/2025 11:00 AM EST Office Visit [facility] [address] [place] [address] NameLarry MD Trochanteric bursitis of right hip (Primary Dx); [...] with others, in a hotel, in a mcc, living outside on the street, on a [...] Description 06/13/2025 11:00 AM EST Clinical Support [facility] MEDIC[facility] [address] [place] [address] Health Maintenance Due Date Last Done Comments [...] Procedure Name Priority Date/Time Associated Diagnosis Comments CHLAMYDIA/TRICHOMONAS /NEISSERIA GONORRHOEAE, PCR, URINE Routine 05/30/2025 2:45 PM EST Routine screening for STI (sexually transmitted infection) CBC WITH AUTO DIFFERENTIAL Routine 05/09/2025 11:49 AM EST Hypertension, unspecified type BASIC METABOLIC PANEL Routine 05/09/2025 11:49 AM EST Hypertension, unspecified type from Last 3 Months Results * Chlamydia/N. Gonorrhoeae, PCR, Urine (05/30/2025 2:45 PM EST) CT PCR, Urine NOT DETECTED Not Detect. [facility] Comment:A not detected test result does not exclude the possibilityof infection because test results can be affected byimproper specimen collection, concurrent antibiotic therapy,or the number of organisms in the specimen which may bebelow the sensitivity of the test. As with many diagnostictests, results from the Xpert CT/NG assay should beinterpreted in conjunction with other laboratory andclinical data available to the clinician.The Xpert CT/NG assay should not be used for the evaluationof suspected sexual abuse or for other medico-legalindications. Additional testing is recommended in anycircumstance when false positive or false negative resultscould lead to adverse medical, social or psychologicalconsequences. NG PCR, Urine NOT DETECTED Not Detect. [facility] Comment:A not detected test result does not exclude the possibilityof infection because test results can be affected byimproper specimen collection, concurrent antibiotic therapy,or the number of organisms in the specimen which may bebelow the sensitivity of the test. As with many diagnostictests, results from the Xpert CT/NG assay should beinterpreted in conjunction with other laboratory andclinical data available to the clinician.The Xpert CT/NG assay should not be used for the evaluationof suspected sexual abuse or for other medico-legalindications. Additional testing is recommended in anycircumstance when false positive or false negative resultscould lead to adverse medical, social or psychologicalconsequences. Urine (Urine, Random) 05/30/2025 2:45 PM EST 05/30/2025 4:40 PM EST us Padmaja Carney NP LAB URINE ORDERABLES Final Resu lt [facility] [address] [place] [address] [phone] * CBC auto differential (05/09/2025 11:49 AM EST) [facility] White Blood Count 7.6 4.8 - 10.8 X10*3/uL [facility] Red Blood Count 4.48 4.20 - 5.50 X10*6/uL [facility] Hemoglobin 13.0 12.0 - 16.0 g/dl [facility] Hematocrit 39.6 37.0 - 47.0 % [facility] Mean Corpuscular Volume 88.4 80.0 - 98.0 fL [facility] Mean Corpuscular Hemoglobin 29.0 27.0 - 33.0 pg [facility] Mean Corpuscular HGB Conc 32.8 31.0 - 35.0 g/dl [facility] Red Cell Distribution Width 14.7 11.0 - 16.0 % [facility] Platelet Count 389 160 - 400 X10*3/uL [facility] Mean Platelet Volume 11.0 9.4 - 12.3 fL [facility] Neutrophils Percent Auto 65.0 45 - 73 % [facility] Imm Gran Pct Auto 0.3 0.0 - 0.4 % [facility] Lymphocytes Percent Auto 22.1 20 - 40 % [facility] Monocytes Percent Auto 9.6 2 - 11 % [facility] Eosinophils Percent Auto 2.1 0 - 4 % [facility] Basophils Percent Auto 0.9 0 - 2 % [facility] NRBC Pct Auto 0.0 0.0 - 0.2 /100WBC [facility] Neutrophils Absolute Auto 4.9 2.0 - 8.3 x10*3/uL [facility] Imm Gran Abs Auto 0.02 0.00 - 0.03 X10*3/uL [facility] Lymphocytes Absolute Auto 1.7 1.2 - 4.9 X10*3/uL [facility] Monocytes Absolute Auto 0.7 0.1 - 1.2 X10*3/uL [facility] Eosinophils Absolute Auto 0.2 0.0 - 0.4 X10*3/uL [facility] Basophils Absolute Auto 0.1 0.0 - 0.2 X10*3/uL [facility] NRBC Abs Auto 0.000 0.0 - 0.012 X10*3/uL [facility] Blood Venous blood specimen / Unknown 05/09/2025 11:49 AM EST 05/09/2025 1:04 PM EST Larry Saucedo MD LAB BLOOD ORDERABLES Final Resul t Performing Organization Address [facility] Co de Phone Number [facility] [address] [place] [address] [phone] * (ABNORMAL) Basic Metabolic Panel (05/09/2025 11:49 AM EST) Sodium 138 135 - 145 mmol/L [facility] Potassium 3.7 3.3 - 5.1 mmol/L [facility] Chloride 106 96 - 108 mmol/L [facility] Carbon Dioxide 25 22 - 29 mmol/L [facility] Anion Gap 11(L) 12 - 20 [facility] Urea Nitrogen (BUN) 9 9 - 16 mg/dL [facility] Creatinine, Serum 0.60 0.5 - 1.4 mg/dL [facility] Estimated Glomerular Filt Rate >60 [facility] Comment:Chronic Kidney Disea se: Estimated GFR < 60 mL/min/1.09a3Clmxlt Kidney Disease: Estimated GFR < 15 mL/min/1.73m2 Glucose 86 60 - 115 mg/dL [facility] Calcium 9.3 8.4 - 10.2 mg/dL [facility] Blood Venous blood specimen / Unknown 05/09/2025 11:49 AM EST 05/09/2025 1:08 PM EST us Larry Saucedo MD LAB BLOOD ORDERABLES Final Resul t Performing Organization Address [facility] Co de Phone Number [facility] [address] [place] [address] [phone] from Last 3 Months Insurance [facility] [place] [phone] [facility] C[facility] Care Teams Chiropractic Physician Relationship Specialty Start Date End Date Padmaja Carney NP [address] [place] [phone] PCP - General Nurse Practitioner 05/30/25
--- OUTSIDE RECORDS SUMMARY | 2025-06-13 08:39 | XMS_ITS | Encounter Summary ---
Author Organization [employer] Address [address] [facility] [address] [place] [address] Care Team Providers Care Graduate Student Instructor Name Role Phone Padmaja Carney NP Primary Care Provider [phone] Reason for Visit * Reason Comments Med Refill Encounter Details Date Type Department Care Team (Late Contact Info) Description 05/09/2025 Refill [facility] [address] [place] [phone] Name, MD Larry [address] [place] [phone] Social History Tobacco Use Types Packs/Day Years [...] Description 06/13/2025 11:00 AM EST Clinical Support [facility] [address] [place] [phone] documented as of this encounter Visit Diagnoses Not on filedocumented in this encounter Care Teams Graduate Student Instructor Relationship Specialty Start Date End Date Padmaja Carney NP [address] [place] [phone] PCP - General Nurse Practitioner 05/30/25 documented as of this encounter
[2025-06-13 11:36] LABS: MANUAL DIFF FLAG NO
[2025-06-13 11:46] LABS: Hematocrit 39.4 % (37.0-47.0); Hemoglobin 12.7 g/dl (12.0-16.0); Imm Gran Abs Auto 0.03 X10*3/uL (0.00-0.03); Imm Gran Pct Auto 0.3 % (0.0-0.4); Lymphocytes Absolute Auto 1.9 X10*3/uL (1.2-4.9); Mean Corpuscular HGB Conc 32.2 g/dl (31.0-35.0); Mean Corpuscular Hemoglobin 28.9 pg (27.0-33.0); Mean Corpuscular Volume 89.7 fL (80.0-98.0); NRBC Abs Auto 0.000 X10*3/uL (0.0-0.012); NRBC Pct Auto 0.0 /100WBC (0.0-0.2); Platelet Count 391 X10*3/uL (160-400); Red Blood Count 4.39 X10*6/uL (4.20-5.50); White Blood Count 9.7 X10*3/uL (4.8-10.8)
[2025-06-13 12:07] LABS: Alanine Aminotransferase 19 U/L (0-31); Albumin Level 4.0 g/dL (3.5-5.0); Alkaline Phosphatase 80 U/L (39-117); Anion Gap 12 (12-20); Aspartate Amino Transferase 27 U/L (5-31); Blood Urea Nitrogen 10 mg/dL (9-16); Calcium 9.3 mg/dL (8.4-10.2); Carbon Dioxide 26 mmol/L (22-29); Chloride 106 mmol/L (96-108); Cholesterol 163 mg/dL (<200); Estimated Glomerular Filt Rate > 60; HDL Cholesterol 60 mg/dL (>40); Potassium 3.5 mmol/L (3.3-5.1); Sodium 140 mmol/L (135-145); Total Protein 7.7 g/dL (6.5-8.0); Triglycerides 106 mg/dL (<150)
[2025-06-13 13:36] LABS: CT PCR Urine NOT DETECTED (Not Detect.); NG PCR Urine NOT DETECTED (Not Detect.)
[2025-06-14 05:20] LABS: HBS Num1 0.80 mIU/mL (0-7.99); HBc Num1 0.15 S/CO (0.00-0.79); HBsAGNum1 0.32 S/CO (0.00-0.99); HIV Num 1 0.07 S/CO (0.00-0.99); Hepatitis B Surface Antigen Negative (Negative); ~HepC Num1 0.11 S/CO (0.00-0.79); ~Hepatitis B Surface Antibody NONREACTIVE (Nonreactive); ~Hepatitis C Antibody Nonreactive (Nonreactive)
[2025-06-14 05:36] LABS: Syphilis Screen Nonreactive (Nonreactive)
== END 2025-06-13 08:35 | disposition home or self-care (01) ==
LOC: HO.HHCL 08:34
DX: Z00.00 Encounter for general adult medical examination without abnormal findings (principal); Z11.3 Encounter for screening for infections with a predominantly sexual mode of transmission; Z13.220 Encounter for screening for lipoid disorders; Z11.59 Encounter for screening for other viral diseases; Z11.4 Encounter for screening for human immunodeficiency virus [HIV]; Z20.2 Contact with and (suspected) exposure to infections with a predominantly sexual mode of transmission
CPT/HCPCS: 36415; 80053; 80061; 85025; 86704; 86706; 86780; 86803; 87340; 87389; 87491; 87591